=== PATIENT | male | born 1970 | race Caucasian/White ===

== ENCOUNTER 2020-11-21 12:13 | Day surgery (SDC) | payer OTHER, BC ==
[2020-11-14 11:44] LABS: BASOPHILS # (AUTO) 0.1 X10'3 (0-0.2); BASOPHILS % (AUTO) 0.8 % (0-1); EOSINOPHILS # (AUTO) 0.4 X10'3 (0-0.9); EOSINOPHILS % (AUTO) 4.8 % (0-6); LYMPHOCYTES # (AUTO) 2.1 X10'3 (1.1-4.8); LYMPHOCYTES % (AUTO) 28.6 % (21-51); MEAN CORPUSCULAR HEMOGLOBIN 29.7 PG (27.0-31.0); MEAN CORPUSCULAR VOLUME 87.4 FL (78-98); MEAN PLATELET VOLUME 8.1 FL (7.4-10.4); MONOCYTES # (AUTO) 0.8 X10'3 (0-0.9); MONOCYTES % (AUTO) 11.1 % (2-12); NEUTROPHILS % (AUTO) 54.7 % (42-75); PRE OP HEMATOCRIT 42.6 % (42.0-52.0); PRE OP HEMOGLOBIN 14.5 g/dL (14.0-17.9); PRE OP PLATELET COUNT 212 X10'3 (140-440); RED BLOOD COUNT 4.88 X10'6 (4.70-6.10); RED CELL DISTRIBUTION WIDTH 13.7 % (11.5-14.5)
[2020-11-14 11:58] LABS: ALBUMIN 4.1 G/DL (3.4-5.0); ALBUMIN/GLOBULIN RATIO 1.2 (1.1-1.5); ALKALINE PHOSPHATASE 73 IU/L (46-116); BLOOD UREA NITROGEN 16 MG/DL (7-18); BUN/CREATININE RATIO 15.5 (5.4-32.0); CALCIUM 9.2 MG/DL (8.5-10.1); CHLORIDE 105 MMOL/L (99-107); CREATININE 1.03 MG/DL (0.60-1.10); PRE OP ALT 27 U/L (30-65); PRE OP ANION GAP 10 (8-16); PRE OP AST 15 U/L (10-37); PRE OP BILIRUB, TOTAL 0.5 MG/DL (0.0-1.0); PRE OP GLUCOSE 111 MG/DL (70-104); PRE OP POTASSIUM 4.2 MMOL/L (3.4-5.1); PRE OP SODIUM 141 MMOL/L (135-145); TOTAL CARBON DIOXIDE 25.9 MMOL/L (24-32); TOTAL PROTEIN 7.6 G/DL (6.4-8.2); eGFR 77 ML/MIN
[~2020-11-21] VITALS: Ht 188 cm; Wt 112.5 kg
[~2020-11-21 12:13] MED LIST: NO HOME MEDS; ceFAZolin 2gm in dextrose, iso 50 ML IV ONE; famotidine 20mg tablet PO ONE; ringers solution, lacted 1,000 ML IV SCH; vancomycin 1,500 MG in NS 300ml IV soln IV ONE
[2020-11-21 12:20] VITALS: BP 136/86
[2020-11-21] MEDS ORDERED: proCHLORperazine 10 MG/2 ml inj IV PRN (13:05)
[2020-11-21] MEDS ORDERED: morphine 2 MG/ML inj. syringe IV PRN (13:05)
[2020-11-21] MEDS ORDERED: morphine 4 MG/ML inj SYRINge IV PRN (13:05)
[2020-11-21] MEDS ORDERED: meperidine/PF 25mg/ml syringe IV PRN ×3 (13:05)
[2020-11-21] MEDS ORDERED: ondansetron/PF 4mg/2ml inj IV PRN (13:05)
[2020-11-21] MEDS ORDERED: ringers solution, lacted 1,000 ML IV SCH (13:05)
[2020-11-21] MEDS ORDERED: methylPREDNISolone sod succ 125mg/2ml vial ONE (13:08)
[2020-11-21] MEDS ORDERED: BUPIVAcaine/PF 2.5 mg/ml (0.25%) 30ml vial ONE (13:08)
[2020-11-21] MEDS ORDERED: sevoflurane 250ml liquid IH ONE (14:23)
[2020-11-21] MEDS ORDERED: LIDOcaine 1% 30ml preserv. free vial ONE (14:25)
[2020-11-21] MEDS ORDERED: ketorolac trometh. 30mg/ml inj. ONE (14:30)
[2020-11-21] MEDS ORDERED: fentaNYL/PF 50MCG/1 ML 2ML syringe ONE (14:30)
[2020-11-21] MEDS ORDERED: MIDAZolam 5mg/5ml vial ONE (14:30)
[2020-11-21 15:20] VITALS: BP 134/74
--- NOTE | 2020-11-21 15:20 | NUR ---
Received from OR via BED, accompanied by Anesthesiologist DR ARIZMENDI and report given by Anesthesiolgist. PATIENT A&OX4, DENIES PAIN, V/S WNL, NEUROVASCULAR CHECKS INTACT, 20G PIV RUE, SCD ON, DRESSING TO LEFT WRIST CDI ELEVATED WITH ICEBAG APPLIED.
[2020-11-21 15:30] VITALS: BP 141/69
[2020-11-21 15:40] VITALS: BP 132/64
[2020-11-21 15:50] VITALS: BP 135/68
[2020-11-21 16:00] VITALS: BP 141/63
--- NOTE | 2020-11-21 16:00 | NUR ---
PATIENT A&OX4, DENIES PAIN, V/S WNL, NEUROVASCULAR CHECKS INTACT, 20G PIV RUE D/C, SCD OFF, DRESSING TO LEFT WRIST CDI ELEVATED WITH ICEBAG APPLIED. I HAVE REVIEWED D/C INSTRUCTIONS WITH PATIENT AND FAMILY AND THEY HAVE VERBALIZED UNDERSTANDING. PATIENT D/C HOME WITH ALL BELONGINGS AND FAMILY GAVE TRANSPORT HOME.
== END 2020-11-21 16:00 | disposition home or self-care (01) ==
LOC: PRE-OP 12:13 → PAS 16:00
PROVIDERS: ATTEND Orthopaedic Surgery
DX: G56.02 Carpal tunnel syndrome, left upper limb (principal); G56.22 Lesion of ulnar nerve, left upper limb; E03.9 Hypothyroidism, unspecified; E66.8 Other obesity; Z68.32 Body mass index [BMI] 32.0-32.9, adult; Z98.890 Other specified postprocedural states; Z87.891 Personal history of nicotine dependence; Z72.89 Other problems related to lifestyle
CPT/HCPCS: 36415; 64719; 64721; 80053; 82948; 85025; A6222; J1885; J2001; J2250; J2930; J3010; J3370; J3490; J7040; A4215; A4565; A6449; A7000; J7120